=== PATIENT | female | born 1935 | race Caucasian/White ===

== ENCOUNTER 2021-11-01 14:46 | Emergency (ER) | payer MEDICARE, OTHER ==
[~2021-11-01] VITALS: Ht 157.5 cm; Wt 63.5 kg
[2021-11-01] MEDS ORDERED: DRIZALMA SPRINK20 MG (17:52)
[2021-11-01] MEDS ORDERED: Roxicodone5 MG PO (17:53)
[2021-11-01 18:01] LABS: Source, Urine Clean Catch
[2021-11-01 18:26] LABS: Appearance, Urine Hazy (Clear); Bilirubin, Urine Neg (Neg); Blood, Urine Neg (Neg); Color, Urine Yellow (P-Yellow); Glucose Qualitative, Urine Neg (Neg); Ketones, Urine Neg (Neg); Leukocyte Esterase, Urine 1+ (Neg); Nitrite, Urine Neg (Neg); Protein, Urine 1+ (Neg); Specific Gravity, Urine 1.015 (1.003-1.022); Urobilinogen, Urine NORM (Normal)
[2021-11-01 19:00] LABS: Bacteria Mod /hpf; Mucus Light (0-Heavy); Red Blood Cells, Urine 0-2 /hpf (0-2); Squamous Epithelial Cells Rare /hpf (Few)
[2021-11-30] MEDS ORDERED: DOXY100 PO (11:56)
[2021-11-30] MEDS ORDERED: Cymbalta20 MG PO (11:57)
[2021-11-30] MEDS ORDERED: ELIQUIS5 M2 PO (11:58)
[2021-11-30] MEDS ORDERED: FOLI1 PO (11:58)
[2021-11-30] MEDS ORDERED: FURO20 PO (11:59)
[2021-11-30] MEDS ORDERED: LEVSOD75 PO (12:01)
[2021-11-30] MEDS ORDERED: OMEP20ER PO (12:02)
[2021-11-30] MEDS ORDERED: PRAV20 PO (12:03)
[2021-11-30] MEDS ORDERED: OYSTER SHELL 51 EAC2 PO (12:03)
[2021-11-30] MEDS ORDERED: Prednisone10 MG PO (12:03)
[2021-11-30] MEDS ORDERED: PREG200 PO ×2 (12:04→12:05)
[2021-11-30] MEDS ORDERED: [UNRECOGNIZED DRUG - CODE] INJ (12:06)
[2021-11-30] MEDS ORDERED: ACET500 PO (12:10)
[2021-11-30] MEDS ORDERED: ALBU90OI INH (12:11)
[2021-11-30] MEDS ORDERED: OXYC5 PO (12:14)
[2021-11-30] MEDS ORDERED: [UNRECOGNIZED DRUG - CODE] PO (12:14)
[2021-11-30] MEDS ORDERED: SENNA LAXATIVE8.6 MG PO (12:15)
[2021-11-30] MEDS ORDERED: MIRALAX17 GM PO (12:15)
== END 2021-11-01 18:06 | disposition home or self-care (01) ==
LOC: ER 14:46
PROVIDERS: Physician Assistant
DX: S76.012A Strain of muscle, fascia and tendon of left hip, initial encounter (principal); Z79.899 Other long term (current) drug therapy; Z96.642 Presence of left artificial hip joint; X58.XXXA Exposure to other specified factors, initial encounter
CPT/HCPCS: 81001; 87086; 99283

== ENCOUNTER → 2021-11-15 | Outpatient (CLI) | payer MEDICARE, OTHER ==
[~2021-11-15] MED LIST: DRIZALMA SPRINK20 MG; Roxicodone5 MG PO
== END | disposition short-term general hospital (02) ==
LOC: PLD 07:35 → LAB SHORT 07:35
DX: D48.5 Neoplasm of uncertain behavior of skin (principal)
CPT/HCPCS: 88305